=== PATIENT | male | born 1995 | race Two or more races ===

== ENCOUNTER 2024-06-06 18:50 | Emergency (ER) | payer MEDICAID, OTHER ==
[~2024-06-06] VITALS: Ht 177.8 cm; Wt 104.4 kg
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
[2024-06-06] MEDS ORDERED: IBUP-1455 PO (20:30)
[2024-06-06] MEDS ORDERED: CYCL-837 PO (20:30)
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
[2024-06-06 20:45] VITALS: BP 126/72; PULSE 74; RESP 16; TEMP 98.5; O2SAT 96
== END 2024-06-06 20:48 | disposition home or self-care (01) ==
LOC: ER 18:50
DX: S00.93XA Contusion of unspecified part of head, initial encounter (principal); S80.01XA Contusion of right knee, initial encounter; M25.511 Pain in right shoulder; V89.2XXA Person injured in unspecified motor-vehicle accident, traffic, initial encounter; Y93.89 Activity, other specified; Y92.410 Unspecified street and highway as the place of occurrence of the external cause; Y99.8 Other external cause status
CPT/HCPCS: 70450; 71250; 73562; 74176